=== PATIENT | female | born 1965 | race Two or more races ===

== ENCOUNTER 2023-05-03 12:00 | Outpatient (CLI) | payer OTHER ==
[2023-05-03 14:00] LABS: PH,URINE 5.5 (5.0-8.0); URINE APPEARANCE Clear; URINE BILIRRUBIN Negative (NEGATIVE); URINE BLOOD Negative; URINE COLOR Yellow; URINE GLUCOSE Negative (NEGATIVE); URINE LEUKOCYTE Small; URINE NITRATE Negative; URINE PROTEIN Negative (NEGATIVE); URINE UROBILINOGEN 0.2 E.U./dl
[2023-05-03 14:01] LABS: URINE BACTERIA 221.6 uL (0.0-1933); URINE EPITHELIAL CELLS 33.5 uL (0.0-38.8); URINE WBC 46.3 uL (0.0-23.2)
[2023-05-03 14:32] LABS: HEMATOCRIT 39.9 % (36.0-45.00); HEMOGLOBIN 13.6 g/dL (12.0-15.00); MEAN CELL VOLUME 90.3 fL (80.00-100.00); MEAN CORPUSCULAR HEMOGLOBIN 30.8 pg (27.00-32.0); MEAN CORPUSCULAR HGB CONC 34.1 g/dl (32.0-36.0); PLATELET COUNT 311 K/uL (150-450); RED BLOOD COUNT 4.42 M/uL (4.00-6.00); RED CELL DISTRIBUTION WIDTH 14.1 % (11.5-14.5)
[2023-05-03 14:46] LABS: INR 0.95
[2023-05-03 14:54] LABS: BILIRUBIN TOTAL 0.6 mg/dL (0.3-1.2); CALCIUM 9.6 mg/dL (8.5-10.1); CREATININE SERUM 0.6 mg/dL (0.55-1.02); GFR 103.04; GLOBULINA 3.6 G/DL (2.4-3.5); POTASSIUM 4.03 mEq/L (3.5-5.1); TOTAL PROTEIN 7.6 gm/dL (6.4-8.2)
== END 2023-05-03 12:15 | disposition home or self-care (01) ==
LOC: LAB 12:00
PROVIDERS: ATTEND Colon & Rectal Surgery
DX: K64.2 Third degree hemorrhoids (principal); K64.4 Residual hemorrhoidal skin tags; K92.1 Melena

== ENCOUNTER 2023-05-14 07:27 | Day surgery (SDC) | payer OTHER | END 2023-05-14 18:55 | disposition home or self-care (01) | LOC: CIR.AMB 07:27 | PROVIDERS: ATTEND Colon & Rectal Surgery | DX: K64.2 Third degree hemorrhoids (principal); K64.4 Residual hemorrhoidal skin tags; K64.1 Second degree hemorrhoids; Z88.6 Allergy status to analgesic agent ==